=== PATIENT | female | born 2005 | race Caucasian/White ===

== ENCOUNTER → 2024-01-30 | Outpatient (REF) | payer OTHER ==
[~2024-01-30] MED LIST: GROWTH HORMONE
== END ==
LOC: DX 08:23
PROVIDERS: ATTEND Internal Medicine
DX: M85.88 Other specified disorders of bone density and structure, other site (principal); E28.39 Other primary ovarian failure
CPT/HCPCS: 77080

== ENCOUNTER → 2025-03-06 | Outpatient (REF) | payer OTHER | LOC: DX 08:13 | PROVIDERS: ATTEND Internal Medicine | DX: M81.0 Age-related osteoporosis without current pathological fracture (principal) | CPT/HCPCS: 77080 ==